=== PATIENT | male | born 1965 | race African-American/Black ===

== ENCOUNTER 2019-05-19 17:16 | Emergency (ER) | payer OTHER ==
[~2019-05-19] VITALS: Ht 185.4 cm; Wt 118.0 kg
[~2019-05-19 17:16] MED LIST: ACETAMINOPHEN 325MG TABLET ONE; ALBUTEROL SULFATE; QVAR; VENTOLIN
[2019-05-19] MEDS ORDERED: PREDNISONE 20MG TABLET PO STA (18:13)
[2019-05-19] MEDS ORDERED: IPRATROPIUM BROMIDE (0.02%) 0.5MG/2.5ML NEB HHN STA (18:13)
[2019-05-19] MEDS ORDERED: ALBUTEROL (0.083%) 2.5MG/3ML NEB HHN STA (18:13)
[2019-05-19 20:47] VITALS: BP 135/85
== END 2019-05-19 20:48 | disposition home or self-care (01) ==
LOC: ER 17:31
DX: J45.901 Unspecified asthma with (acute) exacerbation (principal); I10 Essential (primary) hypertension
CPT/HCPCS: 94640; 99284; J7512; Z7610

== ENCOUNTER 2019-07-12 10:50 | Emergency (ER) | payer OTHER ==
[~2019-07-12] VITALS: Ht 185.4 cm; Wt 123.0 kg
[~2019-07-12 10:50] MED LIST changes: -ACETAMINOPHEN 325MG TABLET ONE
[2019-07-12] MEDS ORDERED: ACETAMINOPHEN 325MG TABLET PO ONE (11:45)
[2019-07-12 12:07] LABS: BASOPHILS % 0.8 % (0.0-2.0); EOSINOPHILS % 1.9 % (0.0-5.0); HEMATOCRIT. 38.3 % (42.0-52.0); HEMOGLOBIN. 12.6 g/dL (14.0-18.0); MEAN CORPUSCULAR HEMOGLOBIN 29.1 pg (28.0-32.0); MEAN CORPUSCULAR VOLUME 88.8 fL (80.0-94.0); MEAN PLATELET VOLUME 9.9 fl (7.4-10.4); MONOCYTES % 14.4 % (2.0-8.0); NEUTROPHILS % 46.9 % (40.0-76.0); PLATELET 173 x1000/uL (130-400); RED BLOOD CELL COUNT 4.32 mill/uL (4.7-6.1); RED CELL DISTRIBUTION WIDTH 15.8 % (11.6-14.6)
[2019-07-12 12:11] LABS: CHLORIDE 109 mEq/L (98-107)
[2019-07-12 12:13] LABS: PROTHROMBIN TIME 10.7 sec (9.6-11.0)
[2019-07-12 12:15] LABS: ETHANOL BLOOD < 10 mg/dL
[2019-07-12] MEDS ORDERED: PANTOPRAZOLE SODIUM 40 MG/VIAL IV ONE (12:45)
[2019-07-12 13:45] VITALS: BP 158/88
== END 2019-07-12 14:00 | disposition home or self-care (01) ==
LOC: ER 11:09
DX: K57.90 Diverticulosis of intestine, part unspecified, without perforation or abscess without bleeding (principal); I10 Essential (primary) hypertension; J45.909 Unspecified asthma, uncomplicated; Z79.899 Other long term (current) drug therapy; Z98.890 Other specified postprocedural states
CPT/HCPCS: 36415; 74176; 80053; 80320; 83690; 85025; 85610; 96374; 99285; C9113; G0480

== ENCOUNTER 2019-08-22 15:20 | Emergency (ER) | payer OTHER ==
[~2019-08-22] VITALS: Ht 177.8 cm; Wt 105.0 kg
[2019-08-22] MEDS ORDERED: IPRATROPIUM BROMIDE (0.02%) 0.5MG/2.5ML NEB HHN STA (15:48)
[2019-08-22] MEDS ORDERED: ALBUTEROL (0.083%) 2.5MG/3ML NEB HHN STA (15:48)
[2019-08-22] MEDS ORDERED: PREDNISONE 20MG TABLET PO STA (15:48)
[2019-08-22] MEDS ORDERED: IPRATROPIUM/ALBUTEROL 0.5-3(2.5)MG/3ML NEB ONE (16:31)
[2019-08-22] MEDS ORDERED: ALBUTEROL (0.083%) 2.5MG/3ML NEB ONE (16:31)
[2019-08-22] MEDS ORDERED: IPRATROPIUM BROMIDE (0.02%) 0.5MG/2.5ML NEB ONE (16:32)
[2019-08-22 17:00] VITALS: BP 166/89
== END 2019-08-22 17:12 | disposition home or self-care (01) ==
LOC: ER 15:20
DX: J45.901 Unspecified asthma with (acute) exacerbation (principal); I10 Essential (primary) hypertension; Z98.890 Other specified postprocedural states
CPT/HCPCS: 71045; 94640; 99283; J7512; Z7610

== ENCOUNTER 2019-12-25 13:05 | Emergency (ER) | payer OTHER ==
[~2019-12-25] VITALS: Ht 170.2 cm; Wt 118.0 kg
[2019-12-25 13:06] VITALS: BP 107/89
[2019-12-25] MEDS ORDERED: IPRATROPIUM BROMIDE (0.02%) 0.5MG/2.5ML NEB HHN STA (13:25)
[2019-12-25] MEDS ORDERED: METHYLPREDNISOLONE SOD SUCC 125 MG/2 ML VIAL IV STA (13:25)
[2019-12-25] MEDS ORDERED: ALBUTEROL (0.083%) 2.5MG/3ML NEB HHN STA (13:25)
[2019-12-25] MEDS ORDERED: SODIUM CHLORIDE 0.9% 1,000 ML IV ONE (13:30)
[2019-12-25] MEDS ORDERED: ALBUTEROL (0.5%) 2.5MG/0.5ML NEB HHN ONE (14:25)
[2019-12-25] MEDS ORDERED: ALBUTEROL (0.083%) 2.5MG/3ML NEB ONE (14:25)
[2019-12-25] MEDS ORDERED: IPRATROPIUM BROMIDE (0.02%) 0.5MG/2.5ML NEB ONE (14:26)
[2019-12-25 14:36] LABS: BASOPHILS % 0.8 % (0.0-2.0); EOSINOPHILS % 1.6 % (0.0-5.0); HEMATOCRIT. 39.5 % (42.0-52.0); HEMOGLOBIN. 13.2 g/dL (14.0-18.0); LYMPHOCYTES % 22.4 % (20.0-50.0); MEAN CORPUSCULAR HEMOGLOBIN 29.3 pg (28.0-32.0); MEAN PLATELET VOLUME 10.1 fl (7.4-10.4); MONOCYTES % 10.5 % (2.0-8.0); NEUTROPHILS % 64.7 % (40.0-76.0); PLATELET 128 x1000/uL (130-400); RED BLOOD CELL COUNT 4.49 mill/uL (4.7-6.1); RED CELL DISTRIBUTION WIDTH 18.2 % (11.6-14.6)
[2019-12-25 14:37] LABS: CHLORIDE 106 mEq/L (98-107)
== END 2019-12-25 18:52 | disposition home or self-care (01) ==
LOC: ER 13:15
DX: J45.901 Unspecified asthma with (acute) exacerbation (principal); Z76.0 Encounter for issue of repeat prescription; I10 Essential (primary) hypertension; Z98.890 Other specified postprocedural states
CPT/HCPCS: 36415; 71045; 80053; 85025; 93005; 94640; 96361; 96374; 99285; J2930; J7030; Z7610

== ENCOUNTER 2020-03-02 17:30 | Emergency (ER) | payer OTHER ==
[~2020-03-02] VITALS: Ht 185.4 cm; Wt 120.0 kg
[2020-03-02] MEDS ORDERED: IBUPROFEN 600MG TABLET PO ONE (17:45)
[2020-03-02] MEDS ORDERED: ALBUTEROL (0.083%) 2.5MG/3ML NEB HHN ONE (19:15)
[2020-03-02 19:45] VITALS: BP 141/84
== END 2020-03-02 20:08 | disposition home or self-care (01) ==
LOC: ER 17:30
DX: S62.115A Nondisplaced fracture of triquetrum [cuneiform] bone, left wrist, initial encounter for closed fracture (principal); S90.02XA Contusion of left ankle, initial encounter; S80.02XA Contusion of left knee, initial encounter; W01.198A Fall on same level from slipping, tripping and stumbling with subsequent striking against other object, initial encounter; Y93.89 Activity, other specified; Y92.29 Other specified public building as the place of occurrence of the external cause; J45.909 Unspecified asthma, uncomplicated; Z76.0 Encounter for issue of repeat prescription
CPT/HCPCS: 29125; 73100; 73560; 73600; 99284

== ENCOUNTER 2020-10-13 23:22 | Emergency (ER) | payer MEDICAID, OTHER ==
[~2020-10-13] VITALS: Ht 185.4 cm; Wt 114.0 kg
[~2020-10-13 23:22] MED LIST changes: +ALBU18HF2 IH; +ALBU2.5V13 NEB; +ALBU6.7H9 INH; +BECL10.62 INH; +NAPR-681 PO; +P50 MT; +P50 PO; +PROSOL IH
[2020-10-14] MEDS ORDERED: ALBUTEROL (0.083%) 2.5MG/3ML NEB HHN STA (02:13)
[2020-10-14] MEDS ORDERED: IPRATROPIUM BROMIDE (0.02%) 0.5MG/2.5ML NEB HHN STA (02:13)
[2020-10-14] MEDS ORDERED: METHYLPREDNISOLONE SOD SUCC 125 MG/2 ML VIAL IM ONE (02:15)
[2020-10-14] MEDS ORDERED: IPRATROPIUM BROMIDE (0.02%) 0.5MG/2.5ML NEB HHN ONE (03:30)
[2020-10-14] MEDS ORDERED: ALBUTEROL (0.083%) 2.5MG/3ML NEB HHN ONE (03:30)
[2020-10-14] MEDS ORDERED: FLUT1DIS3 INH (04:29)
[2020-10-14] MEDS ORDERED: P20 MT ×3 (04:29→04:34)
[2020-10-14] MEDS ORDERED: ALBU6.7H9 INH ×3 (04:29→04:34)
[2020-10-14 04:42] VITALS: BP 142/68
== END 2020-10-14 04:44 | disposition home or self-care (01) ==
LOC: ER 23:22
DX: J45.901 Unspecified asthma with (acute) exacerbation (principal); F12.10 Cannabis abuse, uncomplicated; I10 Essential (primary) hypertension; Z79.899 Other long term (current) drug therapy; Z98.890 Other specified postprocedural states
CPT/HCPCS: 71045; 94640; 99284; J2930; Z7610

== ENCOUNTER 2021-03-23 20:51 | Emergency (ER) | payer MEDICAID, OTHER ==
[~2021-03-23] VITALS: Ht 185.4 cm; Wt 118.0 kg
[~2021-03-23 20:51] MED LIST changes: +FLUT1DIS3 INH; +P20 MT
[2021-03-23] MEDS ORDERED: ALBUTEROL (0.083%) 2.5MG/3ML NEB HHN STA (21:35)
[2021-03-23] MEDS ORDERED: METHYLPREDNISOLONE SOD SUCC 125 MG/2 ML VIAL IV STA (21:35)
[2021-03-23] MEDS ORDERED: IPRATROPIUM BROMIDE (0.02%) 0.5MG/2.5ML NEB HHN STA (21:35)
[2021-03-23] MEDS ORDERED: KETOROLAC 30MG/ML VIAL IM ONE (21:45)
[2021-03-23 22:40] LABS: BASOPHILS % 1.1 % (0.0-2.0); EOSINOPHILS % 3.2 % (0.0-5.0); HEMATOCRIT. 44.9 % (42.0-52.0); HEMOGLOBIN. 14.9 g/dL (14.0-18.0); LYMPHOCYTES % 32.4 % (20.0-50.0); MEAN CORPUSCULAR HEMOGLOBIN 29.7 pg (28.0-32.0); MEAN CORPUSCULAR VOLUME 89.3 fL (80.0-94.0); MEAN PLATELET VOLUME 10.2 fl (7.4-10.4); MONOCYTES % 11.9 % (2.0-8.0); NEUTROPHILS % 51.4 % (40.0-76.0); PLATELET 171 x1000/uL (130-400); RED BLOOD CELL COUNT 5.03 mill/uL (4.7-6.1); RED CELL DISTRIBUTION WIDTH 15.1 % (11.6-14.6)
[2021-03-23 22:45] LABS: CHLORIDE 106 mEq/L (98-107)
[2021-03-24] MEDS ORDERED: P50 MT (00:34)
[2021-03-24] MEDS ORDERED: ALBU6.7H9 INH (00:34)
[2021-03-24] MEDS ORDERED: ALBU2.5V13 NEB (00:34)
[2021-03-24 00:45] VITALS: BP 137/84
[2021-04-05] MEDS ORDERED: PROSOL IH (03:11)
[2021-04-05] MEDS ORDERED: FLUT1DIS3 INH (03:11)
[2021-04-05] MEDS ORDERED: ALBU6.7H9 INH (03:11)
[2021-04-05] MEDS ORDERED: P50 MT (03:11)
== END 2021-03-24 00:48 | disposition home or self-care (01) ==
LOC: ER 20:51
DX: J45.901 Unspecified asthma with (acute) exacerbation (principal); I10 Essential (primary) hypertension; Z79.899 Other long term (current) drug therapy; Z98.890 Other specified postprocedural states
CPT/HCPCS: 36415; 71045; 80053; 84484; 85025; 93005; 94640; 96372; 96374; 99285; J1885; J2930

== ENCOUNTER 2021-07-18 22:47 | Emergency (ER) | payer MEDICAID ==
[~2021-07-18] VITALS: Ht 185.4 cm; Wt 126.5 kg
[2021-07-18 22:52] VITALS: BP 142/88
[2021-07-19] MEDS ORDERED: HYDROCODONE/ACETAMINOPHEN 5/325MG TABLET PO ONE ×2 (00:15→01:00)
[2021-07-19] MEDS ORDERED: AMOX-424 MT (00:16)
[2021-07-19] MEDS ORDERED: NAPR-681 PO (00:16)
[2021-07-19] MEDS ORDERED: IBUPROFEN 800MG TABLET PO ONE (00:45)
== END 2021-07-19 01:01 | disposition home or self-care (01) ==
LOC: ER 22:47
DX: K04.7 Periapical abscess without sinus (principal)
CPT/HCPCS: 99283

== ENCOUNTER 2021-11-20 09:08 | Emergency (ER) | payer MEDICAID, OTHER ==
[~2021-11-20] VITALS: Ht 177.8 cm; Wt 114.0 kg
[~2021-11-20 09:08] MED LIST changes: +AMOX-424 MT
[2021-11-20] MEDS ORDERED: ALBUTEROL (0.083%) 2.5MG/3ML NEB HHN STA (10:40)
[2021-11-20] MEDS ORDERED: PREDNISONE 20MG TABLET PO STA (10:40)
[2021-11-20] MEDS ORDERED: IPRATROPIUM BROMIDE (0.02%) 0.5MG/2.5ML NEB HHN STA (10:40)
[2021-11-20] MEDS ORDERED: ALBU18HF2 IH (10:51)
[2021-11-20] MEDS ORDERED: ALBU2.5V13 NEB (10:51)
[2021-11-20] MEDS ORDERED: FLUT1DIS3 INH (10:51)
[2021-11-20 11:52] VITALS: BP 126/75
[2021-11-20] MEDS ORDERED: P20 MT (11:58)
== END 2021-11-20 13:17 | disposition home or self-care (01) ==
LOC: ER 09:08
DX: J45.901 Unspecified asthma with (acute) exacerbation (principal); I10 Essential (primary) hypertension; Z71.89 Other specified counseling
CPT/HCPCS: 71045; 94640; 99283; J7512; Z7610

== ENCOUNTER 2021-12-18 15:23 | Emergency (ER) | payer MEDICAID, OTHER ==
[~2021-12-18] VITALS: Ht 185.4 cm; Wt 187.0 kg
[~2021-12-18 15:23] MED LIST changes: +ALBU6.7H3 INH; -ALBU6.7H9 INH
[2021-12-18] MEDS ORDERED: ALBUTEROL (0.083%) 2.5MG/3ML NEB HHN STA (16:33)
[2021-12-18] MEDS ORDERED: IPRATROPIUM BROMIDE (0.02%) 0.5MG/2.5ML NEB HHN STA (16:33)
[2021-12-18] MEDS ORDERED: PREDNISONE 20MG TABLET PO STA (16:33)
[2021-12-18] MEDS ORDERED: ALBU6.7H15 INH (16:37)
[2021-12-18] MEDS ORDERED: P20 MT (16:37)
[2021-12-18 18:00] VITALS: BP 175/91
[2021-12-18] MEDS ORDERED: LOSA100T32 MT (18:48)
[2021-12-18] MEDS ORDERED: AMLO10TA4 MT (18:48)
[2021-12-18] MEDS ORDERED: TUSSL MT (18:48)
[2021-12-18] MEDS ORDERED: FLUT1BLS9 IH (19:08)
[2021-12-18] MEDS ORDERED: ALBU05 NEB (19:11)
== END 2021-12-18 19:16 | disposition home or self-care (01) ==
LOC: ER 15:23
DX: J45.901 Unspecified asthma with (acute) exacerbation (principal); I10 Essential (primary) hypertension; Z79.51 Long term (current) use of inhaled steroids; Z87.828 Personal history of other (healed) physical injury and trauma
CPT/HCPCS: 93005; 94640; 99283; J7512; Z7610

== ENCOUNTER 2022-01-19 10:34 | Emergency (ER) | payer MEDICAID, OTHER ==
[~2022-01-19] VITALS: Ht 185.4 cm; Wt 118.0 kg
[~2022-01-19 10:34] MED LIST changes: +ALBU05 NEB; +ALBU6.7H15 INH; +AMLO10TA4 MT; +FLUT1BLS9 IH; +LOSA100T32 MT; +TUSSL MT
[2022-01-19 13:26] VITALS: BP 172/101
[2022-01-19] MEDS ORDERED: ALBUTEROL (0.083%) 2.5MG/3ML NEB HHN ONE ×2 (13:45→14:00)
[2022-01-19] MEDS ORDERED: PREDNISONE 20MG TABLET PO ONE ×2 (13:45→14:00)
[2022-01-19] MEDS ORDERED: P50 PO (15:08)
[2022-01-19] MEDS ORDERED: HYDR25TA MT (15:08)
[2022-01-19] MEDS ORDERED: DICL100G31 TP (15:08)
[2022-01-19] MEDS ORDERED: FLUT1DIS3 INH (15:08)
[2022-01-19] MEDS ORDERED: ALBU18HF2 IH (15:08)
[2022-01-19] MEDS ORDERED: PROSOL IH (15:08)
[2022-01-19] MEDS ORDERED: MONT4GRA2 MT (15:08)
== END 2022-01-19 15:35 | disposition home or self-care (01) ==
LOC: ER 10:45
DX: J45.901 Unspecified asthma with (acute) exacerbation (principal); F12.10 Cannabis abuse, uncomplicated; I10 Essential (primary) hypertension; Z79.899 Other long term (current) drug therapy; Z98.890 Other specified postprocedural states
CPT/HCPCS: 93005; 94640; 99283; J7512; Z7610